=== PATIENT | male | born 1965 | race Caucasian/White ===

== ENCOUNTER 2022-11-18 14:47 | Outpatient (CLI) | payer MEDICAID, SELFPAY ==
[2022-11-18 17:34] LABS: Chloride* 103 mmol/L (96-114); Potassium* 4.7 mmol/L (3.6-5.1); Sodium* 139 mmol/L (135-149)
[2022-11-18 17:37] LABS: Creatinine* 0.9 mg/dL (0.5-1.5); Estimated Glomerular Filt Rate 100 ml/min
[2022-11-18 17:38] LABS: Blood Urea Nitrogen* 12 mg/dL (7-30); Calcium* 9.1 mg/dL (8.4-10.6); Carbon Dioxide* 30 mmol/L (20-32); Glucose* 89 mg/dL (60-115)
[2022-11-18 18:00] LABS: PSA Screen* 6.76 ng/mL (0.10-4.00)
== END 2022-11-18 14:48 | disposition home or self-care (01) ==
PROVIDERS: PCP Family Medicine; Visit Provider Family Medicine
DX: Z01.818 Encounter for other preprocedural examination (principal); Z12.5 Encounter for screening for malignant neoplasm of prostate
CPT/HCPCS: 80048; 84153

== ENCOUNTER 2023-10-06 13:24 | Outpatient (CLI) | payer MEDICAID, SELFPAY | END 2023-10-06 13:25 | disposition home or self-care (01) | PROVIDERS: PCP Family Medicine; Visit Provider Family Medicine | DX: E78.2 Mixed hyperlipidemia (principal); I10 Essential (primary) hypertension; R97.20 Elevated prostate specific antigen [PSA]; C64.9 Malignant neoplasm of unspecified kidney, except renal pelvis | CPT/HCPCS: 80048; 80061; 84153; 84460 ==

== ENCOUNTER 2024-02-26 09:03 | Emergency (ER) | payer OTHER, SELFPAY ==
[2024-02-26 09:17] VITALS: BP 146/83; PULSE 82; RESP 20; TEMP 36.8; O2SAT 98; BMI 17.7
--- NOTE | 2024-02-26 10:31 | ED.WOUNDLAC ---
HPI - Wound/Laceration General Chief Complaint: Laceration/Wound Stated Complaint: finger lac Time Seen by Provider: 02/26/24 10:16 History of Present Illness HPI narrative: This 58-year-old male comes in with an injury to the tip of his left index finger. He was at work and cleaning out that lint trap of a wash machine when he made a small cut to the tip of his left index finger. He reports that his tetanus status is up-to-date. He is taking Brilinta. He comes in because of persistent bleeding. Related Data Home Medications Medication Instructions Recorded Confirmed aspirin 81 mg tablet,delayed 81 mg PO QDAY 11/18/22 02/26/24 release Previous Rx's Medication Instructions Recorded atorvastatin 40 mg tablet 40 mg PO QDAY #90 tabs 10/06/23 sertraline 100 mg tablet 100 mg PO QDAY #90 tabs 10/06/23 tamsulosin 0.4 mg capsule 0.4 mg PO DAILY #90 caps 10/06/23 ticagrelor 90 mg tablet (Brilinta) 90 mg PO BID #180 tabs 10/06/23 Allergies Allergy/AdvReac Type Severity Reaction Status Date / Time No Known Drug Allergies Allergy Verified 10/06/23 12:44 Review of Systems Status of ROS: Reports: 10 or more systems reviewed and unremarkable except as noted in History and below Narrative: Constitutional: No fevers, no weight gain or loss. Eyes: No discharge. No vision changes. HENT: No congestion, no sore throat, no ear pain. Cardiovascular: No chest pain, no palpitations. Respiratory: No shortness of breath, no wheezes, no cough. Gastrointestinal: No abdominal pain, no vomiting, no diarrhea. Genitourinary: No dysuria, no hematuria. Musculoskeletal: Normal range of motion. Left index finger injury as described above. Skin: No rashes, no pruritis. Neurological: No dizziness, weakness, sensory change, speech change. Endo/Heme/Allergies: No bruising or bleeding. No polydipsia. Pysch: no suicidality, no anxiety, no insomnia. All other systems reviewed and are negative. 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 - Personal history of other diseases of the digestive system (ICD-10) Surgical History (Updated 10/09/23 @ 03:27 by Jay Mae MD) History of nephrectomy, right ?Z90.5 - Acquired absence of kidney (ICD-10) History of cerebral aneurysm repair (03/29/18) ?Z98.890 - Other specified postprocedural states (ICD-10) ?Z86.79 - Personal history of other diseases of the circulatory system (ICD-10) Family History (Updated 07/26/22 @ 13:18 by Tish Diop) Brother Stroke Mother COPD (chronic obstructive pulmonary disease) Father Lung cancer Sister High blood pressure Social History (Updated 11/21/22 @ 00:14 by Jay Mae MD) Narrative: Single. No children. Smoker. THC. No EtOH. 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 Smoking Status: Current every day smoker Little interest or pleasure in doing things: more than half the days Feeling down, depressed, or hopeless: more than half the days Exam Narrative: Exam Narrative: Constitutional: Well-developed, well-nourished, no acute distress. HEENT: Normocephalic, atraumatic. Neck: Normal range of motion. Nontender. Supple. Heart: Intact distal pulses. Lungs: No chest discomfort. No wheezes, rhonchi, or rales. Abdomen: Nontender. Back: Normal range of motion. Extremities: Normal range of motion. The tip of the left index finger has Jay Jay very small laceration with no current active bleeding. Skin: Intact. No rash. Warm. No erythema or pallor. Neurologic: No altered sensation. No weakness. Alert and oriented. Psychiatric: No suicidality. No anxiety or depression. No insomnia. Nursing notes and vitals signs are reviewed. Const: Vital Signs, click to edit/add: Vital Signs - 24 hr 02/26/24 09:17 Temperature 98.3 F Pulse Rate [Pulse Oximeter] 82 Respiratory Rate 20 Blood Pressure [Ri ght Upper Arm] 146/83 H Pulse Oximetry 98 Oxygen Delivery Me thod Room Air Course Vital Signs Vital signs: Initial Vital Signs Temperature 98.3 F 02/26/24 09:17 Temperature Source Temporal Artery Scan 02/26/24 09:17 Pulse Rate 82 02/26/24 09:17 Respiratory Rate 20 02/26/24 09:17 Blood Pressure 146/83 H 02/26/24 09:17 Blood Pressure Mean 104 02/26/24 09:17 Pulse Oximetry 98 02/26/24 09:17 Oxygen Delivery Method Room Air 02/26/24 09:17 Vital Signs Temperature 98.3 F 02/26/24 09:17 Pulse Rate 82 02/26/24 09:17 Respiratory Rate 20 02/26/24 09:17 Blood Pressure 146/83 H 02/26/24 09:17 Pulse Oximetry 98 02/26/24 09:17 Oxygen Delivery Method Room Air 02/26/24 09:17 Temperature 98.3 F 02/26/24 09:17 Pulse Rate 82 02/26/24 09:17 Respiratory Rate 20 02/26/24 09:17 Blood Pressure 146/83 H 02/26/24 09:17 Pulse Oximetry 98 02/26/24 09:17 Oxygen Delivery Method Room Air 02/26/24 09:17 MDM - Wound/Laceration MDM Narrative Medical decision making narrative: This patient comes in with a small laceration of the tip of his left index finger. At the time of my examination there is no ongoing bleeding. I repaired the wound using Dermabond and applied bandages with small amount of compression. Instructions regarding wound care were given. Discharge Plan Discharge Clinical Impression: Laceration Patient Disposition: Home, Self-Care Condition: Improved Additional Instructions: Keep wound clean and dry. Follow up with MD return if worsening. Prescriptions: No Action aspirin 81 mg tablet,delayed release (DR/EC) 81 mg PO QDAY atorvastatin 40 mg tablet 40 mg PO QDAY Qty: 90 3RF sertraline 100 mg tablet 100 mg PO QDAY Qty: 90 3RF tamsulosin 0.4 mg capsule 0.4 mg PO DAILY Qty: 90 3RF Brilinta 90 mg tablet 90 mg PO BID Qty: 180 3RF Follow Up/Referrals: Jay Mae MD [Primary Care Provider] - Stand Alone Forms: [employer] Info Instructions
--- OUTSIDE RECORDS SUMMARY | 2024-02-26 10:37 | XMS_ITS | Clinical Summary ---
Author Name Unknown Organization [facility] Address [place], [place] [address] Care Team Providers Care [employer] Name Role Phone [facility] Primary Care Provider Unavail able Allergies No known active allergies Social History Tobacco Use Types Packs/Day Years Used Date Smoking Tobacco: Never Assessed Sex and Gender Information Value Date Recorded Sex Assigned at Not on file Gender Identity Not on file Sexual Orientation Not on file Plan of Treatment Upcoming Encounters Date Type Department Care Team (Late st Contact Info) Description 04/12/2024 1:00 PM CDT Appointment [facility] [address] [place] [address] Health Maintenance Due Date Last Done Comments Tdap 1975 Depression screening for age 12+ 1976 HIV for age 15-65 1979 BMI (ht and wt on same day) for age 18+ 1982 Hepatitis C screening for age 18-79 1982 Tetanus booster 1984 Colonoscopy through age 75 2009 Lipids for age 45-75 2009 Zoster (shingles) series for age 50+ (1 of 2) 2014 COVID-19 vaccine series (2022-24 season) 2023 04/22/2022, 11/12/2021, 03/13/2021, Additional history exists Influenza for age 50-64 06/23/2024 Pneumococcal series for age 6-64 Aged Out No longer eligible based on patient's age to complete this topic Care Teams [employer] Relationship Specialty Start Date End Date Funmi Still PCP - General 09/22/23
--- OUTSIDE RECORDS SUMMARY | 2024-02-26 10:37 | XMS_ITS | Clinical Summary ---
Author Name Unknown Organization [facility] Address [address] [place] [address] Care Team Providers Care Orthopedics Teacher Name Role Phone None Reported, Pcp Primary Care Provider Unavail able Source Comments Patient records contain information from all sites at [facility]. For routine questions regarding patient records, call [phone] during business hours, M-F 8:00 AM - 5:00 PM Central Time. Record requests for emergency care only can be directed to [phone] at any time.[facility] Allergies No known active allergies Medications Medication Sig Dispensed Refills Start Date End Date Status amLODIPine (NORVASC) 5 mg tablet Take 1 tablet by mouth daily. 12/29/2021 Active aspirin 81 mg chewable tablet Chew 81 mg daily. 08/28/2022 Ac tive atorvastatin (LIPITOR) 40 mg tablet Take 40 mg by mouth at bedtime. 12/29/2021 Active gabapentin (NEURONTIN) 100 mg capsule Take 2 capsules by mouth at bedtime. 01/12/2023 Active sertraline (ZOLOFT) 100 mg tablet Take 100 mg by mouth at bedtime. 12/22/2022 Active ibuprofen (ADVIL,MOTRIN) 200 mg tablet Take 400 mg by mouth every 6 (six) hours as needed for pain. Active tamsulosin (FLOMAX) 0.4 mg 24 hr capsule Take 1 capsule (0.4 mg total) by mouth daily. 90 capsule 3 03/02/2023 Active varenicline (CHANTIX) 1 mg tablet TAKE 1 TABLET(1MG TOTAL) BY MOUTH TWICE DAILY WITH MEALS. TAKE WITH FULL GLASS OF WATER AFTER MEAL. 180 tablet 1 05/08/2023 Active ticagrelor (BRILINTA) 90 mg tablet Take 90 mg by mouth 2 (two) times a day. Active acetaminophen (TYLENOL) 500 mg tablet Take 1 tablet (500 mg total) by mouth every 6 (six) hours as needed for pain. 07/14/2023 Active Additional Information Patient not taking.Reported on 10/11/2023 sennosides (senna) 8.6 mg tablet Take 1 tablet (8.6 mg total) by mouth daily. 07/14/2023 Active oxyCODONE (ROXICODONE) 5 mg immediate release tabletIndications: Acute Pain Take 1 to 2 tablets every 4 hours as needed for pain. 10 tablet 07/14/2023 Active Active Problems Problem Noted Date Diagnosed Date Carcinoma Renal Cell Right 11/01/2023 Cancer Staging:Clinical stage from 07/11/2023:Stage II(cT2b(2), cN0, cM0) - Signed by Gris Morgan, CORKY, C.N.P. on 11/01/2023 Lesion Kidney 07/11/2023 Nicotine Dependence Cigarettes 05/02/2023 Mass Kidney 04/20/2023 Aneurysm Cerebral Unruptured 05/10/2021 Hypertension Essential Primary 05/17/2018 0 04/05/2023 Insomnia Psychophysiologic 05/11/201804/05 Major Depressive Disorder Single Episode Unspeci fied 05/11/2018 04/05/2023 Malaise 05/11/2018 04/05/2023 Cerebral Infarction Due To U nspecified Occlusion Or Stenosis Left Anterior Cerebral Artery 04/02/2018 04/05/2023 Other Specified Disorders Of Brain 03/31/2018 04/05/2023 Hydrocephalus 03/31/2018 04/05/2023 Aphasia 03/29/2018 04/05/2023 Other Nontraumatic Subarachnoid Hemorrhage 03/2904/05/2023 Pain Low Back Chronic 03/29/2003 04/05/2023 Overview: Pain Low Back Encounters Date Type Department Care Team Description 12/07/2023 Clinical Communication Department of Nicotine Dependence in [place], [place] [address] [place] [address] Jenny Deal M.A., C.T.T.S. Nicotine Dependence 11/30/2023 Clinical Communication Department of Nicotine Dependence in [place], [place] [address] [place] [address] Jenny Deal M.A., C.T.T.S. Nicotine Dependence from Last 3 Months Immunizations Name Administration Dates Next Due HepA Adult 05/09/2023(Deferred: Other - check with pcp) HepB Adult 05/09/2023(Deferred: Other - check with pcp) Influenza, Injectable, Mdck, Preservative Free, Quadrivalent 08/01/2020 Influenza, Seasonal, Injectable 08/04/2021 PCV20 05/09/2023(Deferred: Patient dec ision) PPSV23(Discontinued) 06/01/2018 RZV (SHINGRIX) 05/09/2023(Deferred: Patient decision),03/25/2022 Tdap 11/26/2018 influenza vaccine QV(FLUBLOK ) (18 years or older) (PF) 07/28/2022 influenza vaccine quad (FLUZONE/FLUARIX) (6 months and older)(PF) 06/25/2019 Social History Tobacco Use Types Packs/Day Years Used Date Smoking Tobacco: Every Day Cigarettes 0.8 44.3 Started: 10/23/1979 Passive Smoke Exposure: Current Smokeless Tobacco: Never Tobacco Cessation:Ready to Q uit: Not Asked; Counseling Given: Not Answered Comments:Patient interested in trying varenicline. Waiting on approval. Alcohol Use Standard Drinks/Week Comments Not Currently 0 (1 standard drink = 0.6 oz pur e alcohol) Humiliation, Afraid, Rape, and Kick questionnair e Answer Date Recorded Within the last year, have y ou been afraid of your partner or ex-partner? No 03/02/2023 Within the last year, have y ou been humiliated or emotionally abused in other ways by your partner or ex-partner? No Within the last year, have y ou been kicked, hit, slapped, or otherwise physically hurt by your partner or ex-partner? No 03/02/2023 Within the last year, have y ou been raped or forced to have any kind of sexual activity by your partner or ex-partner? No 03/02/2023 Social Connection and Isolation Panel [NHANES] A nswer Date Recorded In a typical week, how many times do you talk on the phone with family, friends, or neighbors? Twice a week 03/02/2023 How often do you get together with friends or re latives? Once a week 03/02/2023 How often do you attend hoahaoism or latter day serv ices? Never 03/02/2023 Do you belong to any clubs o r organizations such as hoahaoism groups, unions, fraternal or athletic groups, or school groups? No 03/02/2023 How often do you attend meet ings of the clubs or organizations you belong to? Never 03/02/2023 Are you , , di vorced, , never , or living with a partner? Never 03/02/2023 AUDIT-C Answer Date Recorded Q1: How often do you have a drink containing alc ohol? Never 03/02/2023 Average Number of Drinks Not on file 023 Frequency of Binge Drinking Not on file 02/20 Overall Financial Resource Strain (CARDIA) Answe r Date Recorded How hard is it for you to pa y for the very basics like food, housing, medical care, and heating? Very hard 03/02/2023 [facility] - Occupational Stress Questionnaire Answer Date Recorded Do you feel stress - tense, restless, nervous, or anxious, or unable to sleep at night because your mind is troubled all the time - these days? To some extent 03/02/2023 Exercise Vital Sign Answer Date Recorde d On average, how many days pe r week do you engage in moderate to strenuous exercise (like a brisk walk)? 1 day 03/02/2023 On average, how many minutes do you engage in exercise at this level? 30 min 03/02/2023 Hunger Vital Sign Answer Date Recorded Within the past 12 months, y ou worried that your food would run out before you got the money to buy more. Sometimes true Within the past 12 months, t he food you bought just didn't last and you didn't have money to get more. Often true 08/2023 PRAPARE - Transportation Answer Date Re corded In the past 12 months, has l ack of transportation kept you from medical appointments or from getting medications? No 02/20 In the past 12 months, has l ack of transportation kept you from meetings, work, or from getting things needed for daily living? No 03/02/2023 Housing Stability Vital Sign Answer Randall e Recorded In the last 12 months, was t here a time when you were not able to pay the mortgage or rent on time? Yes 03/02/2023 In the last 12 months, how many places have you lived? 1 03/02/2023 In the last 12 months, was t here a time when you did not have a steady place to sleep or slept in a fpc (including now)? No 03/02/2023 Nutrition Answer Date Recorded Nutrition: EVOO Fat Source No 03/02 On average, how many serving s of fruits and vegetables do you eat per day (serving size is equal to 1 cup or approximately the size of a tennis ball)? 0-1 03/02/2023 Dental Answer Date Recorded Dental: Regular Dentist No 03/02/20 Employment Answer Date Recorded Employment status Working with temporary [employer] 03/02/2023 Education Answer Date Recorded What is the highest level of school you have completed or the highest degree you have received? GED or equivalent 08/2023 Sex and Gender Information Value Date Recorded Sex Assigned at Male 03/02/2023 2:35 PM CDT Gender Identity Male 03/02/2023 2:35 PM CDT Sexual Orientation Straight 03/02/2023 2: 35 PM CDT Last Filed Vital Signs Vital Sign Reading Time Taken Comments Blood Pressure 158/90 07/14/2023 2:16 PM CDT Pulse 106 07/14/2023 2:16 PM CDT Temperature 36.9 ??C (98.4 ??F) 07/14/2023 2:16 PM CD T Respiratory Rate 16 07/14/2023 4:00 AM CDT Oxygen Saturation 98% 07/14/2023 2:16 PM CDT Inhaled Oxygen Concentration - - Weight 53 kg (116 lb 13.5 oz) 07/13/2023 12:30 P M CDT Height 175 cm (5' 8.9) 07/11/2023 6:31 AM CDT Body Mass Index 17.31 07/11/2023 6:31 AM CDT Plan of Treatment Upcoming Encounters Date Type Department Care Team (Late st Contact Info) Description 04/11/2024 10:00 AM CDT Appointment Department of Radiology in [place], [place] [address] [address] Gris Morgan APRN, C.N.P. [address] [phone] 04/11/2024 10:20 AM CDT Appointment Department of Laboratory Medicine in [place], [place] [address] [address] Gris Morgan APRN, C.N.P. [address] [address] 04/11/2024 10:30 AM CDT Appointment Department of Laboratory Medicine in [place], [place] [address] [address] Gris Morgan APRN, C.N.P. [address] [address] 04/11/2024 11:00 AM CDT Office Visit Department of Urology in [place], [place] [address] [address] Gris Morgan APRN, C.N.P. [address] [address] 04/12/2024 1:00 PM CDT Appointment Department of Radiology in [place], [place] [address] [address] Gris Morgan APRN, C.N.P. [address] [address] Health Maintenance Due Date Last Done Comments CT Colonography 1964 Cologuard 1964 Colonoscopy 1964 Colorectal Cancer Screening 1964 Depression Monitoring (PHQ-9) 1964 FIT 1964 Hepatitis C Screening 1964 Lipid (Cholesterol) Screening 1964 Visit: Chronic Disease, age 18+ 1964 Hepatitis B Vaccines (1 of 3 - 19+ 3-dose series) 1983 Zoster Vaccines (2 of 2) 05/20/2022 03/25/2022 Office Visit for Blood Pressure Check / Re-check 05/09/2024 05/09/2023 Pneumococcal vaccine (0-64 years) (2 of 2 - PCV) 05/09/2024 06/01/2018 Postponed from 06/01/2019 (Patient Refused) Lung Cancer Screening 09/25/2024 09/25/2023 , 09/25/2023, 04/06/2023 Fasting Glucose for Diabetes Screening 09/18/2026 09/18/2023, 07/14/2023, 07/13/2023, Additional history exists DTaP,Tdap,and Td Vaccines (2 - Td or Tdap) 11/26/2028 11/26/2018 COVID-19 Vaccine Completed 10/06/2023, 10/2021, 11/12/2021, Additional history exists Influenza Vaccine Completed 10/06/2023, , 08/04/2021, Additional history exists Medical Devices Implanted Type Area Cdl Service Technician Device Identifier Shelf Expiration Date Model / Serial / Lot Clp Hrzn Ti 6 Clp Lg Orng - [id number] Implanted:Qty: 1 on 07/11/2023 by Rivera Gross M.D. at [facility] Hardware e.g. pins/screws /rods Right: Abdomen Estately [id number] 03/26/2028 [id number] / / [id number] Clp Hrzn Ti 6 Clp Lg Orng - [id number] Implanted:Qty: 1 on 07/11/2023 by Rivera Gross M.D. at [facility] Hardware e.g. pins/screws /rods Right: Abdomen [employer] [id number] 03/26/2028 [id number] / / [id number] Clp Hrzn Ti 24 Clp Md Lee - [id number] Implanted:Qty: 1 on 07/11/2023 by Rivera Gross M.D. at [facility] Hardware e.g. pins/screws /rods Right: Abdomen [employer] [id number] / / Clp Hrzn Ti 24 Clp Md Lee - [id number] Implanted:Qty: 1 on 07/11/2023 by Rivera Gross M.D. at [facility] Hardware e.g. pins/screws /rods Right: Abdomen [employer] [id number] 05/08/2028 [id number] / / [id number] Clp Hrzn Ti 6 Clp Lg Orng - [id number] Implanted:Qty: 2 on 07/11/2023 by Rivera Gross M.D. at [facility] Hardware e.g. pins/screws /rods [employer] [id number] / / Clp Hrzn Ti 6 Clp Lg Orng - [id number] Implanted:Qty: 1 on 07/11/2023 by Rivera Gross M.D. at [facility] Hardware e.g. pins/screws /rods Right: Abdomen [employer] [id number] / / Clp Hrzn Ti 6 Clp Lg Orng - [id number] Implanted:Qty: 1 on 07/11/2023 by Rivera Gross M.D. at [facility] Hardware e.g. pins/screws /rods Right: Abdomen [employer] [id number] / / Clp Hrzn Ti 6 Clp Lg Orng - [id number] Implanted:Qty: 1 on 07/11/2023 by Rivera Gross M.D. at [facility] Hardware e.g. pins/screws /rods Right: Abdomen [employer] [id number] 03/26/2028 / / [id number] Clp Hrzn Ti 6 Clp Lg Orng - [id number] Implanted:Qty: 1 on 07/11/2023 by Rivera Gross M.D. at [facility] Hardware e.g. pins/screws /rods Right: Abdomen [employer] [id number] 03/26/[id number] / / [id number] Clp Hrzn Ti 6 Clp Lg Orng - [id number] Implanted:Qty: 1 on 07/11/2023 by Rivera Gross M.D. at [facility] Hardware e.g. pins/screws /rods Right: Abdomen [employer] [id number] 03/26/2028 / / [id number] Stent Other-11/30/2022 Implanted:05/2023 (Quantity not on file) Stent Other Left: Brain MicroVention Description:Flow Re-Directio nal Endoluminal Device Procedures Procedure Name Priority Date/Time Associated Diagnosis Comments CT CHEST WITH IV CONTRAST RAD - Routine (most inpatients and all outpatients) 09/25/2023 8:53 AM [facility] Mass Kidney BASIC METABOLIC PANEL, S/P Routine 09/18/2023 10:34 AM [facility] Mass Kidney from Last 3 Months or Most Recently Relevant to Health Maintenance Results * CT Chest with IV Contrast (09/25/2023 8:53 AM [facility]) Anatomical Region Laterality Modality Chest, Thoracic RST LOS, Tho racic ARZ LOS, Thoracic ARZ LOS, Thoracic FLA LOS N/A Computed Tomography 09/25/2023 8:57 AM [facility] Impressions 09/25/2023 9:22 AM [facility] 1. No evidence for recurrent or metastatic disease in the chest, abdomen or pelvis. 2. Residual post surgical, likely hematoma along the superior right nephrectomy bed. No suspicious features. 3. Prostatomegaly. 4. Moderate centrilobular emphysematous changes. Narrative 09/25/2023 9:22 AM [facility] EXAM: CT ABDOMEN PELVIS WITHOUT AND WITH IV CONTRAST, CT CHEST WITH IV CONTRAST COMPARISON: CT abdomen pelvis 07/12/2023, CT chest 04/06/2023 FINDINGS: Chest: The thyroid is unremarkable. Normal branch from the great vessels off of the thoracic aorta. Aorta and pulmonary artery are normal in caliber. The heart is grossly normal in size. No pericardial effusion. No central pulmonary embolism. No mediastinal, hilar or axillary lymphadenopathy. The central tracheobronchial tree is clear. No focal consolidative opacity. No pleural effusion. No pneumothorax. Prominent central lobar emphysematous changes. Bilateral apical fibrosis. No suspicious pulmonary nodules. No osseous abnormality. Soft tissues are unremarkable. Abdomen and pelvis: Liver: Liver parenchyma is homogenous. Unchanged low-density cyst versus hemangioma in the left hepatic lobe. Several other subcentimeter cysts versus hemangiomas. No focal suspicious hepatic lesion. Gallbladder/bile ducts: The gallbladder is nondistended. No cholelithiasis. No intrahepatic or extrahepatic biliary duct dilatation. Pancreas: No pancreatic lesion. No main pancreatic duct dilatation. Variant pancreatic duct anatomy, likely incomplete pancreatic divisum. Spleen: No suspicious lesion. Adrenal glands: Unremarkable. Kidneys, ureters, bladder: Posttreatment changes of right-sided nephrectomy. Residual likely residual post surgical hematoma in the nephrectomy bed along the right liver margin. No suspicious enhancement or nodularity to suggest recurrent pathology. Normal enhancement of the left kidney. No suspicious left renal lesion. No hydronephrosis or hydroureter. GI tract, mesentery/peritoneum: The large and small bowel is normal in caliber. No abnormal bowel wall thickening. No abnormal bowel wall enhancement. Stomach is unremarkable. Vasculature: The major arterial vessels off of the aorta are patent. The main portal vein is patent. No aortic aneurysmal dilation. Lymph Nodes: No intra-abdominal lymphadenopathy. Reproductive: Prostatomegaly. Bones/soft tissues: No abnormal soft tissue mass or acute fracture. 3D maximum intensity projection (MIP) images were created on a dependent workstation as ordered by the treating provider and reviewed by the radiologist to increase sensitivity for detection of pulmonary nodules. Procedure Note José Miguel Brown M.D. - 09/25/2023 EXAM: CT ABDOMEN PELVIS WITHOUT AND WITH IV CONTRAST, CT CHEST WITH IVCONTRAST COMPARISON: CT abdomen pelvis 07/12/2023, CT chest 04/06/2023 FINDINGS: Chest: The thyroid is unremarkable. Normal branch from the great vessels off ofthe thoracic aorta. Aorta and pulmonary artery are normal in caliber. Theheart is grossly normal in size. No pericardial effusion. No centralpulmonary embolism. No mediastinal, hilar or axillary lymphadenopathy. The central tracheobronchial tree is clear. No focal consolidativeopacity. No pleural effusion. No pneumothorax. Prominent central lobaremphysematous changes. Bilateral apical fibrosis. No suspicious pulmonarynodules. No osseous abnormality. Soft tissues are unremarkable. Abdomen and pelvis: Liver: Liver parenchyma is homogenous. Unchanged low-density cyst versushemangioma in the left hepatic lobe. Several other subcentimeter cystsversus hemangiomas. No focal suspicious hepatic lesion. Gallbladder/bile ducts: The gallbladder is nondistended. Nocholelithiasis. No intrahepatic or extrahepatic biliary duct dilatation. Pancreas: No pancreatic lesion. No main pancreatic duct dilatation.Variant pancreatic duct anatomy, likely incomplete pancreatic divisum. Spleen: No suspicious lesion. Adrenal glands: Unremarkable. Kidneys, ureters, bladder: Posttreatment changes of right-sidednephrectomy. Residual likely residual post surgical hematoma in thenephrectomy bed along the right liver margin. No suspicious enhancement ornodularity to suggest recurrent pathology. Normal enhancement of the left kidney. No suspicious left renal lesion. Nohydronephrosis or hydroureter. GI tract, mesentery/peritoneum: The large and small bowel is normal incaliber. No abnormal bowel wall thickening. No abnormal bowel wallenhancement. Stomach is unremarkable. Vasculature: The major arterial vessels off of the aorta are patent. Themain portal vein is patent. No aortic aneurysmal dilation. Lymph Nodes: No intra-abdominal lymphadenopathy. Reproductive: Prostatomegaly. Bones/soft tissues: No abnormal soft tissue mass or acute fracture. 3D maximum intensity projection (MIP) images were created on a dependentworkstation as ordered by the treating provider and reviewed by theradiologist to increase sensitivity for detection of pulmonary nodules. IMPRESSION: 1. No evidence for recurrent or metastatic disease in the chest, abdomenor pelvis. 2. Residual post surgical, likely hematoma along the superior rightnephrectomy bed. No suspicious features. 3. Prostatomegaly. 4. Moderate centrilobular emphysematous changes. Ross A Polk M.D. IMG CT PROCEDURES * (ABNORMAL) Basic Metabolic Panel (09/18/2023 10:34 AM [facility]) Potassium, P 4.8 3.6 - 5.2 mmol/L 09/18/2023 2:07 PM [facility] Sodium, P 138 135 - 145 mmol/L 09/18/2023 2:07 PM [facility] Chloride, P 100 98 - 107 mmol/L 09/18/2023 2:07 PM [facility] Bicarbonate, P 23 22 - 29 mmol/L 09/18/2023 2:07 PM [facility] Anion Gap, P 15 7 - 15 09/18/2023 2:07 PM [facility] BUN (Blood Urea Nitrogen), P 9 8 - 24 mg/dL 09/18/2023 2:07 PM [facility] Creatinine 1.59(H) 0.74 - 1.35 mg/dL 09/18/2023 2:07 PM [facility] Estimated GFR (eGFR) 50(L) >=60 mL/min/BSA 09/18/2023 2:07 PM [facility] Comment: Estimated GFR calculated using the 2020 CKD_EPI creatinine equation. Calcium, Total, P 9.4 8.6 - 10.0 mg/dL 09/18/2023 2:07 PM [facility] Glucose, P 99 70 - 140 mg/dL 09/18/2023 2:07 PM [facility] Blood (Blood, Venous) 09/18/2023 10:34 AM [facility] 09/18/2023 1:16 PM [facility] Rivera Gross M.D. LAB BLOOD [facility] [address] [place] [address], [place] [facility] [facility] [place] [address] [place] [address] from Last 3 Months or Most Recently Relevant to Health Maintenance Advance Directives For more information, please contact: [phone] * Full Code (Latest Code Status on File) Date Activated Date Inactivated Comments 07/11/2023 2:31 PM 07/14/2023 5:38 PM Question Answer Comments Full Code: Discussed * Full Code Date Activated Date Inactivated Comments 07/11/2023 6:27 AM 07/11/2023 2:31 PM Question Answer Comments Full Code: Discussed Care Teams Orthopedics Teacher Relationship Specialty Start Date End Date None Reported, Pcp PCP - General Family Medicine 07/11/23
--- OUTSIDE RECORDS SUMMARY | 2024-02-26 10:38 | XMS_ITS | Encounter Summary ---
Author Name Unknown Organization [facility] Address [address] [place] [address] Care Team Providers Care Arc Cutter Name Role Phone No Primary/Referring, Phy Primary Care Provider Unavailable Encounter Details Date Type Department Care Team (Late st Contact Info) Description 02/18/2019 Correspondence None No Primary/Referring, Phy STATEMENT OF NON-COVERED/BENEFICIARY AGREEMENT Social History Tobacco Use Types Packs/Day Years Used Date Smoking Tobacco: Every Day Cigarettes 1 46.3 Started: 10/23/1977 Smokeless Tobacco: Never Alcohol Use Standard Drinks/Week Comments No 0 (1 standard drink = 0.6 oz pur e alcohol) Sex and Gender Information Value Date Recorded Sex Assigned at Not on file Gender Identity Not on file Sexual Orientation Not on file documented as of this encounter Plan of Treatment Not on file documented as of this encounter Visit Diagnoses Not on filedocumented in this encounter Care Teams Arc Cutter Relationship Specialty Start Date End Date No Primary/Referring, Phy PCP - General 04/16/21 documented as of this encounter
--- OUTSIDE RECORDS SUMMARY | 2024-02-26 10:38 | XMS_ITS | Encounter Summary ---
Author Name Unknown Organization [facility] Address [address] [place] [address] Care Team Providers Care Dolphin Researcher Name Role Phone No Primary/Referring, Mirna Primary Care Provider Unavailable Encounter Details Date Type Department Care Team (Late st Contact Info) Description 03/29/2018 [facility] DISCLOSURE AGREEMENT-INPATIENT REHABILITATION Social History Tobacco Use Types Packs/Day Years Used Date Smoking Tobacco: Every Day Cigarettes 0.8 46.3 Started: 10/23/1977 Smokeless Tobacco: Former Chew Quit: 1980 Alcohol Use Standard Drinks/Week Comments No 0 [...] on filedocumented in this encounter Care Teams Dolphin Researcher Relationship Specialty Start Date End Date No Primary/ReferringMirna PCP - General 04/16/21 documented as of this encounter
--- OUTSIDE RECORDS SUMMARY | 2024-02-26 10:38 | XMS_ITS ---
Author Name Unknown Organization [facility] Address [address] [place] [address] Care Team Providers Care Magnetic Tape Typewriter Operator Name Role Phone Unavailable Unavailable Unavailable Surgery Details Not on file Complications Check Surgery Details section. Procedure Estimated Blood Loss Check Surgery Details section. Procedure Findings Check Surgery Details section. Procedure Specimens Taken Check Surgery Details section.
--- OUTSIDE RECORDS SUMMARY | 2024-02-26 10:38 | XMS_ITS | Encounter Summary ---
Author Name Unknown Organization [facility] Address [address] [place] [address] Care Team Providers Care Stator Tester Name Role Phone None Reported, Pcp Primary Care Provider Unavail able Reason for Visit * Reason Onset Date Comments Nicotine Dependence 12/07/2023 Encounter Details Date Type Department Care Team (Latest Contact Info) Description 12/07/2023 Clinical Communication Department of Nicotine Dependence in [place], [place] [address] [place] [phone] Jenny Deal M.A., C.T.T.S. [address] [place] [address] Nicotine Dependence Social History Tobacco Use Types Packs/Day Years Used Date Smoking Tobacco: Every Day Cigarettes 0.8 44.3 Started: 10/23/1979 Passive Smoke Exposure: Current Smokeless Tobacco: Never Comments:Patient interested in trying varenicline. Waiting on [...] week 03/02/2023 How often do you attend moravian or mu-ism serv ices? Never 03/02/2023 Do you belong to any clubs o r organizations such as moravian groups, unions, fraternal or athletic groups, or [...] medical care, and heating? Very hard 03/02/2023 [facility] of Occupat ional Health - Occupational Stress [...] place to sleep or slept in a custodial (including now)? No 03/02/2023 Nutrition Answer Date [...] Date Recorded Employment status Working with temporary restric tions 03/02/2023 Education Answer Date Recorded What is the highest level of school you have completed or the highest degree you have received? GED or equivalent 08/2023 Sex and Gender Information Value Date Recorded Sex Assigned at Male 03/02/2023 2:35 PM CDT Gender Identity Male 03/02/2023 2:35 PM CDT Sexual Orientation Straight 03/02/2023 2: 35 PM CDT documented as of this encounter Miscellaneous Notes * Telephone Encounter - Jenny Deal M.A., C.T.T.S. - 12/07/2023 8:50 AM DIRECTOR OF CONSULTING SERVICES Tobacco Appeals And Generalist Clerk 6 Month and Final Phone Follow Up: No answer, left message to return call and sent letter. Jenny Deal MA, CTTS CTOR OF CONSULTING SERVICES documented in this encounter Plan of Treatment Upcoming Encounters Date Type Department Care Team (Late st Contact Info) Description 04/11/2024 10:00 AM CDT Appointment Department of Radiology in [place], [place] [address] [place] [address] Gris Morgan APRN, C.N.P. [address] [address] 04/11/2024 10:20 AM CDT Appointment Department of Laboratory Medicine in [place], [place] [address] [address] Gris Morgan APRN, C.N.P. [address] [address] 04/11/2024 10:30 AM CDT Appointment Department of Laboratory Medicine in [place], [place] [address] [phone] Gris Morgan APRN, C.N.P. [address] [phone] 04/11/2024 11:00 AM CDT Office Visit Department of Urology in [place], [place] [address] [place] [address] Gris Morgan APRN, C.N.P. [address] [address] 04/12/2024 1:00 PM CDT Appointment Department of Radiology in [place], [place] [address] [address] Gris Morgan APRN, C.N.P. [address] [phone] documented as of this encounter Visit Diagnoses Not on filedocumented in this encounter Care Teams Stator Tester Relationship Specialty Start Date End Date None Reported, Pcp PCP - General Family Medicine 07/11/23 documented as of this encounter
--- OUTSIDE RECORDS SUMMARY | 2024-02-26 10:38 | XMS_ITS | Encounter Summary ---
Author Name Unknown Organization [facility] Address [address] [place] [address] Care Team Providers Care News Technical Director Name Role Phone None Reported, Pcp Primary Care Provider Unavail able Reason for Visit * Reason Onset Date Comments Nicotine Dependence 11/30/2023 Encounter Details Date Type Department Care Team (Latest Contact Info) Description 11/30/2023 Clinical Communication Department of Nicotine Dependence in [place], [place] [address] [place] [phone] Jenny Deal M.A., C.T.T.S. [address] [place] [address] Nicotine Dependence Social History Tobacco Use [...] week 03/02/2023 How often do you attend religion or mandaeism serv ices? Never 03/02/2023 Do you belong to any clubs o r organizations such as religion groups, unions, fraternal or athletic groups, or [...] medical care, and heating? Very hard 03/02/2023 [facility] of Occupat ional Health - Occupational Stress [...] place to sleep or slept in a mcc (including now)? No 03/02/2023 Nutrition Answer Date Recorded Nutrition: EVOO Fat Source No 03/02 On average, how many serving s of fruits and vegetables do you eat per day (serving size is equal to 1 cup or approximately the size of a tennis ball)? 0-1 03/02/2023 Dental Answer Date Recorded Dental: Regular Dentist No 03/02/20 23 Employment Answer Date Recorded Employment status Working [...] Encounter - Jenny Deal M.A., C.T.T.S. - 11/30/2023 9:11 AM ASSOCIATE JAVA DEVELOPER Tobacco Professional Development Manager 6 Month Phone Follow Up: No answer, left message to return call. KEVIN Hartmann,CTTS CIATE JAVA DEVELOPER documented in this encounter Plan of Treatment Upcoming Encounters Date Type Department Care Team (Late st Contact Info) Description 04/11/2024 10:00 AM CDT Appointment Department of Radiology in [place], [place] [address] [phone] Gris Morgan APRN, C.N.P. [address] [address] 04/11/2024 10:20 AM CDT Appointment Department of Laboratory Medicine in [place], [place] [address] [address] Gris Morgan APRN, C.N.P. [address] [address] 04/11/2024 10:30 AM CDT Appointment Department of Laboratory Medicine in [place], [place] [address] [phone] Gris Morgan APRN, C.N.P. [address] [address] 04/11/2024 11:00 AM CDT Office Visit Department of Urology in [place], [place] [address] [address] Gris Morgan APRN, C.N.P. [address] [address] 04/12/2024 1:00 PM CDT Appointment Department of Radiology in [place], [place] [address] [address] Gris Morgan APRN, C.N.P. [address] [phone] documented as of this encounter Visit Diagnoses Not on filedocumented in this encounter Care Teams News Technical Director Relationship Specialty Start Date End Date None Reported, Pcp PCP - General Family Medicine 07/11/23 documented as of this encounter
--- OUTSIDE RECORDS SUMMARY | 2024-02-26 10:38 | XMS_ITS | Referral Summary ---
Author Name Unknown Organization [facility] Address [address] [place] [address] Care Team Providers Care Compliance Associate Name Role Phone None Reported, Pcp Primary Care Provider Unavail able Source Comments Patient records contain information from all sites at [facility]. For routine questions regarding patient records, call [phone] during business hours, M-F 8:00 AM - 5:00 PM Central Time. Record requests for emergency care only can be directed to [phone] at any time.[facility] Encounters Date Type Department Care Team Description 12/07/2023 Clinical Communication Department of Nicotine Dependence in [place], [place] [address] [phone] Jenny Deal M.A., C.T.T.S. Nicotine Dependence 11/30/2023 Clinical Communication Department of Nicotine Dependence in [place], [place] [address] [phone] Jenny Deal M.A., C.T.T.S. Nicotine Dependence from Last 3 Months Allergies No known active allergies Medications Medication [...] II(cT2b(2), cN0, cM0) - Signed by Gris Morgan APRN, C.N.P. on 11/01/2023 Lesion Kidney 07/11/2023 Nicotine [...] Chronic 03/29/2003 04/05/2023 Overview: Pain Low Back Immunizations Name Administration Dates Next Due HepA [...] week 03/02/2023 How often do you attend mu-ism or adventist serv ices? Never 03/02/2023 Do you belong to any clubs o r organizations such as mu-ism groups, unions, fraternal or athletic groups, or [...] medical care, and heating? Very hard 03/02/2023 [facility] of Occupat ional Health - Occupational Stress [...] place to sleep or slept in a care home (including now)? 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 [address] [phone] 04/11/2024 10:20 AM CDT Appointment Department of Laboratory Medicine in [place], [place] [address] [phone] Gris Morgan APRN, C.N.P. [address] [address] 04/11/2024 10:30 AM CDT Appointment Department of Laboratory Medicine in [place], [place] [address] [address] Gris Morgan APRN, C.N.P. [address] [address] 04/11/2024 11:00 AM CDT Office Visit Department of Urology in [place], [place] [address] [address] Gris Morgan APRN, C.N.P. [address] [address] 04/12/2024 1:00 PM CDT Appointment Department of Radiology in [place], [place] [address] [address] Gris Morgan APRN, C.N.P. [address] [address] Medical Devices Implanted Type Area Manager Managed Care Device Identifier Shelf Expiration Date Model / Serial / Lot Clp Hrzn Ti 6 Clp Lg Orng - [id number] Implanted:Qty: 1 on 07/11/2023 by Rivera Gross M.D. at [facility] Hardware e.g. pins/screws /rods Right: [employer] [id number] 03/26/2028 [id number] / / [id number] Clp Hrzn Ti 6 Clp Lg Orng - [id number] Implanted:Qty: 1 on 07/11/2023 by Rivera Gross M.D. at [facility] Hardware e.g. pins/screws /rods Right: [employer] [id number] 03/26/2028 [id number] / / [id number] Clp Hrzn Ti 24 Clp Lee - [id number] Implanted:Qty: 1 on 07/11/2023 by Rivera Gross M.D. at [facility] Hardware e.g. pins/screws /rods Right: [employer] [id number] / / Clp Hrzn Ti 24 Clp Lee - [id number] Implanted:Qty: 1 on 07/11/2023 by Rivera Gross M.D. at [facility] Hardware e.g. pins/screws /rods Right: [employer] [id number] 05/08/2028 [id number] / / [id number] Clp Hrzn Ti 6 Clp Lg Orng - [id number] Implanted:Qty: 2 on 07/11/2023 by Rivera Gross M.D. at [facility] Hardware e.g. pins/screws /rods [employer] [id number] / / Clp Hrzn Ti 6 Clp Lg Orng - [id number] Implanted:Qty: 1 on 07/11/2023 by Rivera Gross M.D. at [facility] Hardware e.g. pins/screws /rods Right: [employer] [id number] / / Clp Hrzn Ti 6 Clp Lg Orng - [id number] Implanted:Qty: 1 on 07/11/2023 by Rivera Gross M.D. at [facility] Hardware e.g. pins/screws /rods Right: [employer] [id number] / / Clp Hrzn Ti 6 Clp Lg Orng - [id number] Implanted:Qty: 1 on 07/11/2023 by Rivera Gross M.D. at [facility] Hardware e.g. pins/screws /rods Right: [employer] [id number] 03/26/2028 [id number] / / [id number] Clp Hrzn Ti 6 Clp Lg Orng - [id number] Implanted:Qty: 1 on 07/11/2023 by Rivera Gross M.D. at [facility] Hardware e.g. pins/screws /rods Right: [employer] [id number] 03/26/2028 [id number] / / [id number] Clp Hrzn Ti 6 Clp Lg Orng - [id number] Implanted:Qty: 1 on 07/11/2023 by Rivera Gross M.D. at [facility] Hardware e.g. pins/screws /rods Right: [employer] [id number] 03/26/2028 [id number] / / [id number] Stent Other-11/30/2022 Implanted:020 05/2023 (Quantity not on file) Stent Other Left: Brain [employer] Description:Flow Re-Directio nal Endoluminal Device Procedures Procedure Name Priority Date/Time Associated Diagnosis Comments CT CHEST WITH IV CONTRAST RAD - Routine (most inpatients and all outpatients) 09/25/2023 8:53 AM STEAM BONE PRESS TENDER Mass Kidney BASIC METABOLIC PANEL, S/P Routine 09/18/2023 10:34 AM STEAM BONE PRESS TENDER Mass Kidney from Last 3 Months or Most Recently Relevant to Health Maintenance Results * CT Chest with IV Contrast (09/25/2023 8:53 AM STEAM BONE PRESS TENDER) Anatomical Region Laterality Modality Chest, Thoracic RST LOS, Tho racic ARZ LOS, Thoracic ARZ LOS, Thoracic FLA LOS N/A Computed Tomography 09/25/2023 8:57 AM STEAM BONE PRESS TENDER Impressions 09/25/2023 9:22 AM STEAM BONE PRESS TENDER 1. No evidence for recurrent or metastatic disease in the chest, abdomen or pelvis. 2. Residual post surgical, likely hematoma along the superior right nephrectomy bed. No suspicious features. 3. Prostatomegaly. 4. Moderate centrilobular emphysematous changes. Narrative 09/25/2023 9:22 AM STEAM BONE PRESS TENDER EXAM: CT ABDOMEN PELVIS WITHOUT AND WITH [...] 3. Prostatomegaly. 4. Moderate centrilobular emphysematous changes. Rivera Gross M.D. IMG CT PROCEDURES * (ABNORMAL) Basic Metabolic Panel (09/18/2023 10:34 AM STEAM BONE PRESS TENDER) Potassium, P 4.8 3.6 - 5.2 mmol/L 09/18/2023 2:07 PM STEAM BONE PRESS TENDER OWAT Sodium, P 138 135 - 145 mmol/L 09/18/2023 2:07 PM STEAM BONE PRESS TENDER OWAT Chloride, P 100 98 - 107 mmol/L 09/18/2023 2:07 PM STEAM BONE PRESS TENDER [employer]AT Bicarbonate, P 23 22 - 29 mmol/L 09/18/2023 2:07 PM STEAM BONE PRESS TENDER [employer]AT Anion Gap, P 15 7 - 15 09/18/2023 2:07 PM STEAM BONE PRESS TENDER [employer]AT BUN (Blood Urea Nitrogen), P 9 8 - 24 mg/dL 09/18/2023 2:07 PM STEAM BONE PRESS TENDER OWAT Creatinine 1.59(H) 0.74 - 1.35 mg/dL 09/18/2023 2:07 PM STEAM BONE PRESS TENDER OWAT Estimated GFR (eGFR) 50(L) >=60 mL/min/BSA 09/18/2023 2:07 PM STEAM BONE PRESS TENDER OWAT Comment: Estimated GFR calculated using the 2020 CKD_EPI creatinine equation. Calcium, Total, P 9.4 8.6 - 10.0 mg/dL 09/18/2023 2:07 PM STEAM BONE PRESS TENDER OWAT Glucose, P 99 70 - 140 mg/dL 09/18/2023 2:07 PM STEAM BONE PRESS TENDER OWAT Blood (Blood, Venous) 09/18/2023 10:34 AM STEAM BONE PRESS TENDER 09/18/2023 1:16 PM STEAM BONE PRESS TENDER Rivera Gross M.D. LAB BLOOD ADD-ON [facility] [address] [place] [address], [place] OW[employer] [facility] [address] [place] [address] from Last 3 Months or Most Recently Relevant to Health Maintenance Advance Directives For more information, please contact: [phone] * Full Code (Latest Code Status on File) Date Activated Date Inactivated Comments 07/11/2023 2:31 PM 07/14/2023 5:38 PM Question Answer Comments Full Code: Discussed * Full Code Date Activated Date Inactivated Comments 07/11/2023 6:27 AM 07/11/2023 2:31 PM Question Answer Comments Full Code: Discussed Care Teams Compliance Associate Relationship Specialty Start Date End Date None Reported, Pcp PCP - General Family Medicine 07/11/23
--- OUTSIDE RECORDS SUMMARY | 2024-02-26 10:38 | XMS_ITS | Clinical Summary ---
Author Name Unknown Organization [facility] Address [address] [place] [address] Care Team Providers Care Directional Drill Operator Name Role Phone No Primary/Referring, Phy Primary Care Provider Unavailable Source Comments You are receiving this document as you are listed as the primary care provider,follow-up provider, or the patient has been referred to you for consultation.This is in compliance with the Medicare and[facility] E[facility] Incentive Program,which states Providers who transition their patient to another setting of careor provider of care or refers their patient to another provider of care shouldprovide summary care record for each transition of care or referral. [facility]ergies No known active allergies Medications Medication Sig Dispensed Refills Start Date End Date Status acetaminophen (TYLENOL) 325 MG tablet Take 2 Tablets by mouth every 6 hours as needed. 100 Tablet 11 05/11/2021 Active sertraline (ZOLOFT) 100 MG tablet TAKE 1 TABLET BY MOUTH DAILY 90 Tablet 3 10/05/2021 Active gabapentin (NEURONTIN) 100 MG capsuleIndications:T halamic pain syndrome 100mg tid for 1 wk, then increase to 200mg tid for one week, then 300mg tid 180 Capsule 11 12/29/2021 Active Additional Information Patient taking differently: 200 mg Oral DAILY, 100mg tid for 1 wk, then increase to 200mg tid for one week, then 300mg tid, Reported on 08/25/2022 atorvastatin (LIPITOR) 40 MG tabletIndications:Hy perlipidemia, unspecified hyperlipidemia type (HRC) Take 1 Tablet (40 mg) by mouth daily. 90 Tablet 3 12/29/2021 Active amLODIPine (NORVASC) 5 MG tabletIndications:Es sential hypertension (HRC) Take 1 Tablet (5 mg) by mouth daily. 90 Tablet 3 12/29/2021 Active aspirin 81 MG chewable tabletIndications:Is chemic Stroke Chew and swallow 1 Tablet (81 mg) by mouth daily. Indications: Stroke Due To Limited Blood Flow 108 Tablet 3 08/28/2022 Active ticagrelor (BRILINTA) 90 MG tablet Take 1 Tablet (90 mg) by mouth two times a day. Do not start before 2022. 180 Tablet 3 2022 Active oxyCODONE (ROXICODONE) 5 MG immediate release tablet Take 1 Tablet (5 mg) by mouth every 4 hours as needed for Pain. 10 Tablet 12/01/2022 Active methylPREDNISolone (MEDROL 21 TABLET DOSEPACK) 4 MG tablet Follow package directions Do not start before December 02, 2022. 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 Tobacco abuse 03/29/2018 Aphasia 03/29/2018 Lumbago 03/29/2003 Overview: Pain Low Back Resolved Problems Problem Noted Date Diagnosed Date Resolved Date Dysphagia 05/17/2018 05/02/2019 Retention of urine 05/11/2018 9 Severe protein-calorie malnutrition 04/20/2018 05/02/2019 Acute respiratory failure wi th hypoxia and hypercapnia 03/31/2018 05/02/2019 Pyuria 03/30/2018 05/17/2018 Obtundation 03/29/2018 05/02/2019 Immunizations Name Administration Dates Next Due Influenza (Flucelvax), Preserv Free QIV 08/01/20 20 Influenza IIV4 (Quadrivalent) 0.5mL (55132) 12/2018 Moderna Monovalent 12+ 03/13/2021,02/13/2021 Moderna Monovalent Booster 12+ 04/22/2022,2021 PPSV23 (Pneumovax) 06/01/2018 Tdap 11/26/2018 Family History Medical History Relation Name Comments Cancer, Lung Father COPD Mother Hypertension Sister 1 Relation Name Status Comments Father Mother Brother Alive Sister 1 Alive Sister 2 Alive Sister 3 Alive Social History Tobacco Use Types Packs/Day Years Used Date Smoking Tobacco: Every Day Cigarettes 0.8 46.3 Started: 10/23/1977 Smokeless Tobacco: Former Chew Quit: 1980 Tobacco Cessation:Ready to Q uit: No; Counseling Given: No Alcohol Use Standard Drinks/Week Comments No 0 (1 standard drink = 0.6 oz pur e alcohol) Sex and Gender Information Value Date Recorded Sex Assigned at Not on file Gender Identity Not on file Sexual Orientation Not on file Last Filed Vital Signs Vital Sign Reading Time Taken Comments Blood Pressure 116/64 12/01/2022 9:00 AM PRODUCT MARKETER Pulse 64 12/01/2022 9:00 AM PRODUCT MARKETER Temperature 36.5 ??C (97.7 ??F) 12/01/2022 8:00 AM CS T Respiratory Rate 12 12/01/2022 9:00 AM PRODUCT MARKETER Oxygen Saturation 98% 12/01/2022 9:00 AM PRODUCT MARKETER Inhaled Oxygen Concentration - - Weight 56.1 kg (123 lb 10.9 oz) 12/01/2022 5:00 AM PRODUCT MARKETER Height 175.3 cm (5' 9) 12/01/2022 5:00 AM PRODUCT MARKETER Body Mass Index 18.26 12/01/2022 5:00 AM PRODUCT MARKETER Plan of Treatment Health Maintenance Due Date Last Done Comments PSA Screening Discussion 1964 Adult Preventive Visit 1982 HepB (1) 1983 FIT Colon Cancer Screening 2008 Pneumococcal (2 - PCV) 06/01/2019 06/01/2018 Zoster/Shingles (2 of 2) 05/20/2022 03/25/2022 COVID-19 Vaccine (5 - season) 2023 04/22/2022, 11/12/2021, 03/13/2021, Additional history exists Influenza (Season Ended) 2024 021, 08/01/2020, 06/25/2019 Cholesterol 08/26/2027 08/26/2022, 03/24, 11/26/2018, Additional history exists DTaP/Tdap/Td (2 - Tdap) 11/26/2028 11/26/2018 HIV Screening (Preventive Services) Completed 11/26/2018 Hep C Screening (Preventive Services) Completed 11/26/2018 HepA Aged Out No longer eligi ble based on patient's age to complete this topic Hib Aged Out No longer eligi ble based on patient's age to complete this topic IPV (Polio) Aged Out No longer eligi ble based on patient's age to complete this topic MCV4 Aged Out No longer eligi ble based on patient's age to complete this topic Medical Devices Implanted Type Area Print Buyer Device Identifier Shelf Expiration Date Model / Serial / Lot Barricade Neuro Stent-Bernice-2020 Implanted:Qty: 1 on 05/10/2021 by José Miguel Ware MD DEVICE Left: BRAIN [employer] 03/15/2026 BARRICADE / / [id number] Description:Left BERNICE Barricade Complex Finish Coil-11/30/2022 Implanted:Qty: 1 on 11/30/2022 by Sai Penn MD DEVICE BRA[employer] 06/09/2027 [id number] 10 / / [id number] Description:L BERNICE Barricade Complex Finish Coil-11/30/2022 Implanted:Qty: 1 on 11/30/2022 by Sai Penn MD DEVICE BRAIN [employer] 02/01/2027 [id number] 10 / / [id number] Description:L BERNICE Barricade Complex Finish-11/30/2022 Implanted:Qty: 1 on 11/30/2022 by Sai Penn MD DEVICE BRA[employer] 05/23/2027 [id number] 10 / / [id number] Description:L BERNICE Flow Re-Direction Endoluminal Device-11/30/2022 Implanted:Qty: 1 on 11/30/2022 by Sai Penn MD DEVICE BRAIN [employer] 09/21/2024 / [id number] / [id number] Description:L BERNICE Procedures Procedure Name Priority Date/Time Associated Diagnosis Comments LIPID PANEL & DIRECT LDL (IF NEEDED) Routine 08/26/2022 6:58 AM CDT HIV 1/2 AG/AB 4TH GEN Routine 11/26/2018 10:18 AM PRODUCT MARKETER Screening for HIV (human immunodeficiency virus) HEPATITIS C ANTIBODY, WITH REFLEX Routine 11/26/2018 10:18 AM PRODUCT MARKETER Need for hepatitis C screening test from Last 3 Months or Most Recently Relevant to Health Maintenance Results * Lipid Panel and Direct measured LDL (08/26/2022 6:58 AM CDT) Cholesterol 150 0 - 199 mg/dL 08/26/2022 7:58 AM CDT [facility] Triglyceride 75 <=149 mg/dL 08/26/2022 7:58 AM CDT [facility] HDL Cholesterol 44 >=40 mg/dL 7:58 AM CDT [facility] LDL, Calculated 91 <130 mg/dL 7:58 AM CDT [facility] Non HDL Chol, Calculated 106 <=159 mg/dL 08/26/2022 7:58 AM CDT [facility] Cholesterol/HDL Ratio 3.4 08/26/2022 7:58 AM CDT [facility] Blood Venipuncture / Unknown 08/26/2022 6:58 AM CDT 08/26/2022 7:17 AM CDT [facility] PA-C LAB_1 Performing Organization Address City/State/[facility] Co de Phone Number [id number] [place] [address] * HIV 1/2 Ag/Ab 4th Generation (11/26/2018 10:18 AM PRODUCT MARKETER) HIV-1 p24 Ag and HIV-1/HIV-2 Ab Nonreactive Nonreactive PN SOFT 11/26/2018 10:1 8 AM PRODUCT MARKETER 11/26/2018 1:09 PM PRODUCT MARKETER Narrative PN SOFT - 11/26/2018 1:59 PM PRODUCT MARKETER [place] [address] CLIA number [id number] Aleena A Robinson [facility] [place] [facility] LAB_1 Performing Organization Address City/[facility] Co de Phone Number PN SOFT [address] [place] [address] * Hepatitis C Virus Rachel with Reflex (11/26/2018 10:18 AM PRODUCT MARKETER) Hepatitis C Antibody Nonreactive Nonreactive PN SOFT 11/26/2018 10:1 8 AM PRODUCT MARKETER 11/26/2018 1:09 PM PRODUCT MARKETER Narrative PN SOFT - 11/26/2018 1:59 PM PRODUCT MARKETER Performed at [address] [address] CLIA number [id number] Aleena Bowers PA-C LAB_1 Performing Organization Address [facility] de Phone Number PN SOFT [address] [place] [address] from Last 3 Months or Most Recently Relevant to Health Maintenance Advance Directives * Full Code (Latest Code Status on File) Date Activated Date Inactivated Comments 11/30/2022 3:13 PM 12/01/2022 2:04 PM * Full Code Date Activated Date Inactivated Comments 08/25/2022 5:10 PM 08/28/2022 4:17 PM * Full Code Date Activated Date Inactivated Comments 05/10/2021 1:39 PM 05/11/2021 12:22 PM * Full Code Date Activated Date Inactivated Comments 07/08/2019 11:29 AM 07/08/2019 6:51 PM * Full Code Date Activated Date Inactivated Comments 04/23/2018 12:18 PM 05/10/2018 12:22 PM Care Teams Directional Drill Operator Relationship Specialty Start Date End Date No Primary/Referring, Phy PCP - General 04/16/21
--- OUTSIDE RECORDS SUMMARY | 2024-02-26 10:38 | XMS_ITS ---
Author Name Unknown Organization [facility] Address [address] [place] [address] Care Team Providers Care Line Service Technician Name Role Phone None Reported, Pcp Primary Care Provider Unavail able Active Problems Problem Noted Date Diagnosed Date [...] Chronic 03/29/2003 04/05/2023 Overview: Pain Low Back Current Oncology Plans No current plan information found. Past Plans No past plan information found. Radiation Treatments * No radiation treatments are documented for this patient in [facility]. Treatments may have been administered in another system. Lifetime Dose Tracking * Chemical Lifetime Dose Automatic Entry Manual Entr y Radiation 117.71 mGy 117.71 mGy 0 mGy Fluoro Time 3.7 minutes 3.7 minutes 0 minutes DAP (Gy-cm2) 20.5 Gy-cm2 20.5 Gy-cm2 0 Gy-cm2
== END 2024-02-26 10:39 | disposition home or self-care (01) ==
PROVIDERS: Emergency Provider Emergency Medicine Emergency Medical Services; PCP Family Medicine
DX: S61.211A Laceration without foreign body of left index finger without damage to nail, initial encounter (principal); W26.8XXA Contact with other sharp object(s), not elsewhere classified, initial encounter; Y93.89 Activity, other specified; Y99.0 Civilian activity done for income or pay
CPT/HCPCS: 12001; 99282; 99284